=== PATIENT | male | born 1950 | race Two or more races ===

== ENCOUNTER 2017-04-12 13:37 | Day surgery (SDC) | payer MEDICARE, OTHER ==
[~2017-04-12] VITALS: Ht 160 cm; Wt 66.2 kg
[2017-04-12 14:07] VITALS: Ht 160 cm; Wt 66.2 kg
[2017-04-12] MEDS ORDERED: ASPI-535 PO (14:15)
[2017-04-12] MEDS ORDERED: AMLO-147 PO (14:15)
[2017-04-12] MEDS ORDERED: DIPH1TAB25 PO (14:15)
[2017-04-12 14:34] VITALS: BP 123/68; PULSE 75; RESP 13
[2017-04-12] MEDS ORDERED: FENTAnyl 50 MCG/ML VIAL ONE (14:48)
[2017-04-12] MEDS ORDERED: PROPOFOL 20 ML ONE (14:48)
[2017-04-12] MEDS ORDERED: LIDOCAINE 2% (SDV) 5 ML INJ ONE (14:48)
[2017-04-12] MEDS ORDERED: MIDAZOLAM 1 MG/ML 2 ML INJ ONE (14:48)
--- NOTE | 2017-04-12 15:08 | OPPN ---
Date/Time of Note Date/Time of Note DATE: 04/12/17 TIME: 15:07 Operative Report Preoperative Diagnosis Chronic diarrhea Lower abdominal pain Postoperative Diagnosis Normal colonic mucosa Random biopsies were taken to rule out microscopic colitis Internal hemorrhoids Operation/Procedure Performed Colonoscopy and biopsy Surgeon see signature line actuarial assistant None Anesthesia: MAC Estimated blood loss: none Transfusion Required none Specimen Random colon biopsy Grafts/Implants none Complications none NOÉ DIAZ MD Apr 12, 2017 15:08
[2017-04-12 15:30] VITALS: BP 128/74; RESP 17
--- NOTE | 2017-04-12 22:04 | GILP ---
DATE OF PROCEDURE: NAME OF PROCEDURES: Colonoscopy and biopsy. SURGEON: Noé Lipscomb MD PREOPERATIVE DIAGNOSES: 1. Chronic diarrhea. 2. Lower abdominal pain. POSTOPERATIVE DIAGNOSES: 1. Colonoscopy all the way to the cecum. 2. Random biopsies were taken to rule out microscopic colitis. 3. Internal hemorrhoids. INDICATION FOR THE PROCEDURE: Mr. Mehrdad Curran is a 66-year-old male patient who had lower abd ominal pain and chronic diarrhea. The patient was scheduled for colonoscopy for further evaluation. The procedure and possible complications were well explained to the patient, the patient understood and consented to the procedure. DESCRIPTION OF PROCEDURE: Under the influence of anesthesia, the colonoscope was carefully introduc ed in the rectum and under direct vision, it was advanced all the way to the cecum. FINDINGS: The patient had normal colonic mucosa. Random biopsies were taken to rule out microscopi c colitis. The patient was noted to have internal hemorrhoids. He tolerated the procedure very well and there was no complication from the procedure. At the end o f the procedure, he was awake with stable vital signs and he was discharged home to the care of his family. IMPRESSION: Please see postoperative diagnosis. PLAN: 1. Continue Lomotil. 2. Await histopathology reports. 3. Next screening colonoscopy in 10 years. Dictated By: NOÉ STOCK/HAYDEN Conf#: [id number] DID#: [id number]
== END 2017-04-12 18:23 | disposition home or self-care (01) ==
LOC: GIL 13:37
PROVIDERS: ATTEND Internal Medicine Gastroenterology
DX: K64.8 Other hemorrhoids (principal); I10 Essential (primary) hypertension
CPT/HCPCS: 45380; 88305; J2250; J3010